=== PATIENT | female | born 1955 | race African-American/Black ===

== ENCOUNTER 2020-01-22 18:17 | Emergency (ER) | payer OTHER, MEDICAID ==
[~2020-01-22] VITALS: Ht 170.2 cm; Wt 68.0 kg
[~2020-01-22 18:17] MED LIST: CLON0.3T PO; CLOP75TA4 PO; HYDR100T26 PO; LISI40TA4 PO; METO-539 PO; PHEN50TA2 PO
[2020-01-22] MEDS ORDERED: SODIUM CHLORIDE 0.9% 500 ML IV ONE (18:45)
[2020-01-22 19:06] LABS: BASOPHILS % 1.4 % (0.0-2.0); EOSINOPHILS % 4.3 % (0.0-5.0); HEMATOCRIT. 34.2 % (36.0-48.0); HEMOGLOBIN. 11.6 g/dL (12.0-16.0); LYMPHOCYTES % 41.4 % (20.0-50.0); MEAN CORPUSCULAR HEMOGLOBIN 33.1 pg (28.0-32.0); MEAN CORPUSCULAR VOLUME 97.5 fL (81.0-99.0); MEAN PLATELET VOLUME 8.1 fl (7.4-10.4); NEUTROPHILS % 44.9 % (40.0-76.0); PLATELET 257 x1000/uL (130-400); RED BLOOD CELL COUNT 3.51 mill/uL (4.2-5.4); RED CELL DISTRIBUTION WIDTH 13.6 % (11.6-14.6)
[2020-01-22 19:12] LABS: CHLORIDE 116 mEq/L (98-107)
[2020-01-22] MEDS ORDERED: MORPHINE SULFATE 2 MG/ML CPJ (NOT FOR IM USE) IV ONE (19:15)
[2020-01-22] MEDS ORDERED: ONDANSETRON HCL 4MG/2ML INJ IV ONE (19:15)
[2020-01-22 19:17] LABS: PROTHROMBIN TIME 10.5 sec (9.6-11.0)
[2020-01-22] MEDS ORDERED: MAGNESIUM CITRATE 300ML SOLUTION PO ONE (23:15)
[2020-01-23 02:20] VITALS: BP 123/77
== END 2020-01-23 02:22 | disposition home or self-care (01) ==
LOC: ER 18:17
DX: K59.00 Constipation, unspecified (principal); R10.9 Unspecified abdominal pain; K62.5 Hemorrhage of anus and rectum; I10 Essential (primary) hypertension; R56.9 Unspecified convulsions; Z88.0 Allergy status to penicillin; Z93.3 Colostomy status
CPT/HCPCS: 36415; 74176; 80053; 83690; 84484; 85025; 85610; 93005; 96361; 96374; 96375; 99285; J2270; J2405; J7040

== ENCOUNTER 2020-05-28 04:03 | Inpatient (IN) | payer OTHER, MEDICAID ==
[~2020-05-28] VITALS: Ht 149.9 cm; Wt 73.9 kg
[2020-05-28] MEDS ORDERED: FAMOTIDINE 20MG/2ML VIAL IV STA (04:38)
[2020-05-28] MEDS ORDERED: MORPHINE SULFATE 4 MG/ML CPJ (NOT FOR IM USE) IV STA (04:38)
[2020-05-28] MEDS ORDERED: ONDANSETRON HCL 4MG/2ML INJ IV STA (04:38)
[2020-05-28] MEDS ORDERED: SODIUM CHLORIDE 0.9% 1,000 ML IV ONE (04:45)
[2020-05-28 05:44] LABS: EOSINOPHILS % 5.3 % (0.0-5.0); HEMATOCRIT. 34.5 % (36.0-48.0); HEMOGLOBIN. 11.5 g/dL (12.0-16.0); LYMPHOCYTES % 35.1 % (20.0-50.0); MEAN CORPUSCULAR HEMOGLOBIN 32.3 pg (28.0-32.0); MEAN CORPUSCULAR VOLUME 96.6 fL (81.0-99.0); MEAN PLATELET VOLUME 8.5 fl (7.4-10.4); MONOCYTES % 5.9 % (2.0-8.0); NEUTROPHILS % 52.7 % (40.0-76.0); PLATELET 348 x1000/uL (130-400); RED BLOOD CELL COUNT 3.57 mill/uL (4.2-5.4); RED CELL DISTRIBUTION WIDTH 14.5 % (11.6-14.6)
[2020-05-28 05:52] LABS: CHLORIDE 117 mEq/L (98-107)
[2020-05-28 05:54] LABS: PROTHROMBIN TIME 42.6 sec (9.6-11.0)
[2020-05-28] MEDS ORDERED: IOHEXOL-350 100 ML BOTTLE ONE (06:42)
[2020-05-28 07:48] LABS: INR 4.4
[2020-05-28] MEDS ORDERED: MORPHINE SULFATE 4 MG/ML CPJ (NOT FOR IM USE) IV ONE (08:15)
[2020-05-28] MEDS ORDERED: DOCUSATE SODIUM 100MG CAPSULE PO PRN (10:15)
[2020-05-28] MEDS ORDERED: GUAIFENESIN 200MG/10ML SUGAR FREE UDC PO PRN (10:15)
[2020-05-28] MEDS ORDERED: NITROGLYCERIN 0.4MG TABLET SL SL PRN (10:15)
[2020-05-28] MEDS ORDERED: IPRATROPIUM/ALBUTEROL 0.5-3(2.5)MG/3ML NEB NEB PRN (10:15)
[2020-05-28] MEDS ORDERED: ZOLPIDEM TARTRATE 5MG TABLET PO PRN (10:15)
[2020-05-28] MEDS ORDERED: ACETAMINOPHEN 325MG TABLET PO PRN (10:15)
[2020-05-28] MEDS ORDERED: MAGNESIUM/ALUMINUM HYDROXIDE/SIMETHICONE 30ML UDC PO PRN (10:15)
[2020-05-28] MEDS: CLONIDINE 0.1MG TABLET PO PRN ×2 (10:46→16:37)
[2020-05-28] MEDS: AMLODIPINE 10MG TABLET PO SCH (10:46)
[2020-05-28 12:00] VITALS: BP_SYST 199; BP_SYST 235; BP_DIAS 121; BP_DIAS 128
[2020-05-28] MEDS: MORPHINE SULFATE 2 MG/ML CPJ (NOT FOR IM USE) IV PRN ×3 (12:28→20:59)
[2020-05-28] MEDS ORDERED: LISINOPRIL 20MG TABLET PO SCH (13:00)
[2020-05-28] MEDS ORDERED: AMLODIPINE 10MG TABLET PO SCH (13:00)
[2020-05-28] MEDS: HYDRALAZINE HCL 50MG TABLET PO SCH ×2 (13:03→21:01)
[2020-05-28] MEDS: TRAMADOL 50MG TABLET PO PRN (14:14)
[2020-05-28] MEDS ORDERED: PROT20 PO (15:41)
[2020-05-28] MEDS ORDERED: CARV25TA47 MT (15:43)
[2020-05-28] MEDS ORDERED: WARF5TAB76 PO (15:43)
[2020-05-28] MEDS ORDERED: KEPP500 MT (15:43)
[2020-05-28 16:00] VITALS: BP 191/121
[2020-05-28] MEDS: ONDANSETRON HCL 4MG/2ML INJ IV PRN ×2 (18:43→22:44)
[2020-05-28 20:00] VITALS: BP 168/95
[2020-05-28] MEDS: PHENYTOIN SODIUM EXTENDED 100MG CAPSULE PO SCH (20:06)
[2020-05-28] MEDS: FAMOTIDINE 20MG TABLET PO SCH (21:00)
[2020-05-28] MEDS: ASCORBIC ACID 500 MG TABLET PO SCH (21:00)
[2020-05-28] MEDS: METOPROLOL TARTRATE 25MG TABLET PO SCH (21:01)
[2020-05-28] MEDS: LISINOPRIL 20MG TABLET PO SCH (21:01)
[2020-05-28 23:49] LABS: *AMPHETAMINES SCREEN URINE NEGATIVE (NEGATIVE); *BARBITURATES SCREEN URINE NEGATIVE (NEGATIVE); *BENZODIAZEPINES SCREEN URINE NEGATIVE (NEGATIVE); *COCAINE SCREEN URINE NEGATIVE (NEGATIVE); METHADONE URINE SCREEN NEGATIVE (NEGATIVE)
[2020-05-28 23:50] LABS: CANNABINOID URINE SCREEN NEGATIVE (NEGATIVE); OPIATES URINE SCREEN PRESUMTIVE POSITIVE (NEGATIVE); PHENCYCLIDINE URINE SCREEN NEGATIVE (NEGATIVE)
[2020-05-29] VITALS (11 sets, daily range): BP systolic 129–186; BP diastolic 66–138
[2020-05-29] MEDS: CLONIDINE 0.2MG TABLET PO PRN ×3 (00:04→18:55)
[2020-05-29] MEDS: ACETAMINOPHEN 325MG TABLET PO PRN ×2 (00:47→18:59)
[2020-05-29] MEDS: MORPHINE SULFATE 2 MG/ML CPJ (NOT FOR IM USE) IV PRN ×4 (01:08→20:04)
[2020-05-29 01:12] LABS: CREATINE KINASE 262 IU/L (26-192)
[2020-05-29] MEDS: HYDRALAZINE HCL 50MG TABLET PO SCH ×3 (05:03→21:09)
[2020-05-29] MEDS: PHENYTOIN SODIUM EXTENDED 100MG CAPSULE PO SCH ×2 (05:03→17:06)
[2020-05-29 06:35] LABS: INR 1.8; PROTHROMBIN TIME 18.8 sec (9.6-11.0)
[2020-05-29 06:39] LABS: BASOPHILS % 1.4 % (0.0-2.0); EOSINOPHILS % 2.7 % (0.0-5.0); HEMATOCRIT. 38.8 % (36.0-48.0); HEMOGLOBIN. 13.1 g/dL (12.0-16.0); LYMPHOCYTES % 23.6 % (20.0-50.0); MEAN CORPUSCULAR HEMOGLOBIN 32.7 pg (28.0-32.0); MEAN CORPUSCULAR VOLUME 96.5 fL (81.0-99.0); MEAN PLATELET VOLUME 8.2 fl (7.4-10.4); MONOCYTES % 7.1 % (2.0-8.0); NEUTROPHILS % 65.2 % (40.0-76.0); PLATELET 305 x1000/uL (130-400); RED BLOOD CELL COUNT 4.02 mill/uL (4.2-5.4); RED CELL DISTRIBUTION WIDTH 14.5 % (11.6-14.6)
[2020-05-29 06:40] LABS: CHLORIDE 112 mEq/L (98-107)
[2020-05-29 06:46] LABS: PHOSPHORUS 2.9 mg/dL (2.5-4.9)
[2020-05-29] MEDS ORDERED: ZINC SULFATE 220 MG ( 50 ) CAPSULE PO SCH (09:00)
[2020-05-29] MEDS: TRAMADOL 50MG TABLET PO PRN (10:13)
[2020-05-29] MEDS: FAMOTIDINE 20MG TABLET PO SCH (10:13)
[2020-05-29] MEDS: ASCORBIC ACID 500 MG TABLET PO SCH (10:14)
[2020-05-29] MEDS: METOPROLOL TARTRATE 25MG TABLET PO SCH ×2 (10:14→21:10)
[2020-05-29] MEDS: AMLODIPINE 10MG TABLET PO SCH (10:15)
[2020-05-29] MEDS: LISINOPRIL 20MG TABLET PO SCH (10:16)
[2020-05-29] MEDS: ONDANSETRON HCL 4MG/2ML INJ IV PRN ×2 (13:04→14:51)
[2020-05-29] MEDS ORDERED: WARFARIN SODIUM 5MG TABLET PO SCH (18:00)
== END 2020-05-29 21:25 | disposition short-term general hospital (02) | DRG 206 ==
LOC: ER 04:03 → 8WST 08:27 → ENRESERV 10:25
PROVIDERS: ADMIT Internal Medicine; ATTEND Internal Medicine
DX: M94.0 Chondrocostal junction syndrome [Tietze] (principal); I16.1 Hypertensive emergency; K29.70 Gastritis, unspecified, without bleeding; D63.8 Anemia in other chronic diseases classified elsewhere; E66.9 Obesity, unspecified; F17.200 Nicotine dependence, unspecified, uncomplicated; G40.909 Epilepsy, unspecified, not intractable, without status epilepticus; I10 Essential (primary) hypertension; T45.515A Adverse effect of anticoagulants, initial encounter; Y92.89 Other specified places as the place of occurrence of the external cause; Z86.718 Personal history of other venous thrombosis and embolism; Z93.3 Colostomy status; Z88.0 Allergy status to penicillin; Z79.899 Other long term (current) drug therapy; Z88.8 Allergy status to other drugs, medicaments and biological substances; Z68.32 Body mass index [BMI] 32.0-32.9, adult
CPT/HCPCS: 36415; 71045; 71275; 74176; 80053; 80185; 80305; 82550; 82553; 82962; 83605; 83735; 83880; 84100; 84484; 85025; 93005; 93306; 93970; 99285; J2270; J2405; J3490; J7030; Q9967

== ENCOUNTER 2021-05-11 19:28 | Inpatient (IN) | payer OTHER, MEDICAID ==
[~2021-05-11] VITALS: Ht 162.6 cm; Wt 76.7 kg
[~2021-05-11 19:28] MED LIST changes: +CARV25TA47 MT; +CLOP-31 PO; -CLOP75TA4 PO; +KEPP500 MT; +LISI40TA13 PO; -LISI40TA4 PO; +PROT20 PO; +WARF5TAB76 PO
[2021-05-11] MEDS ORDERED: SODIUM CHLORIDE 0.9% 1,000 ML IV ONE (19:45)
[2021-05-11 20:27] LABS: BASOPHILS % 0.1 % (0.0-2.0); HEMATOCRIT. 36.5 % (36.0-48.0); HEMOGLOBIN. 11.7 g/dL (12.0-16.0); LYMPHOCYTES % 33.3 % (20.0-50.0); MEAN CORPUSCULAR HEMOGLOBIN 31.8 pg (28.0-32.0); MEAN CORPUSCULAR VOLUME 98.9 fL (81.0-99.0); MEAN PLATELET VOLUME 7.9 fl (7.4-10.4); MONOCYTES % 5.8 % (2.0-8.0); NEUTROPHILS % 57.8 % (40.0-76.0); PLATELET 296 x1000/uL (130-400); RED BLOOD CELL COUNT 3.69 mill/uL (4.2-5.4); RED CELL DISTRIBUTION WIDTH 14.1 % (11.6-14.6)
[2021-05-11 20:34] LABS: CHLORIDE 114 mEq/L (98-107)
[2021-05-11 20:36] LABS: INR 1.1; PROTHROMBIN TIME 11.5 sec (9.6-11.0)
[2021-05-11 20:37] LABS: ETHANOL BLOOD < 10 mg/dL
[2021-05-11 20:40] LABS: LDL CHOLESTEROL 79 mg/dL (5-100)
[2021-05-11] MEDS ORDERED: PIPERACILLIN/TAZ 3.375G PREMIX 50 ML IV ONE (20:45)
[2021-05-11] MEDS ORDERED: SODIUM CHLORIDE 0.9% 1000ML BAG (SEPSIS BOLUS) IV ONE (20:45)
[2021-05-11] MEDS ORDERED: VANCOMYCIN 1 G PREMIX 200 ML IV ONE (20:45)
[2021-05-12] MEDS ORDERED: DOCUSATE SODIUM 100MG CAPSULE PO PRN (12:15)
[2021-05-12] MEDS ORDERED: IPRATROPIUM/ALBUTEROL 0.5-3(2.5)MG/3ML NEB HHN PRN (12:15)
[2021-05-12] MEDS ORDERED: ONDANSETRON HCL 4MG/2ML INJ IV PRN (12:15)
[2021-05-12] MEDS ORDERED: MAGNESIUM/ALUMINUM HYDROXIDE/SIMETHICONE 30ML UDC PO PRN (12:15)
[2021-05-12] MEDS ORDERED: ACETAMINOPHEN 325MG TABLET PO PRN (12:15)
[2021-05-12] MEDS ORDERED: CLONIDINE 0.1MG TABLET PO PRN (12:15)
[2021-05-12] MEDS ORDERED: HYDROCODONE/ACETAMINOPHEN 5/325MG TABLET PO PRN (12:15)
[2021-05-12] MEDS ORDERED: NALOXONE HCL 0.4MG/ML VIAL IV PRN (12:30)
[2021-05-12] MEDS ORDERED: CLONIDINE 0.3MG TABLET PO SCH (12:45)
[2021-05-12] MEDS ORDERED: LEVETIRACETAM 500MG TABLET PO SCH (12:45)
[2021-05-12] MEDS ORDERED: LISINOPRIL 40MG TABLET PO SCH (12:45)
[2021-05-12] MEDS ORDERED: ENOXAPARIN 40MG/0.4ML SYR SUBCUT SCH (13:00)
[2021-05-12 13:27] VITALS: BP 149/65
[2021-05-12] MEDS ORDERED: METOPROLOL TARTRATE 50MG TABLET PO SCH (17:00)
[2021-05-13] MEDS ORDERED: OMEPRAZOLE 20MG CAPSULE EXTENDED RELEASE PO SCH (07:30)
[2021-05-13] MEDS ORDERED: CLOPIDOGREL 75MG TABLET PO SCH (09:00)
[2021-05-13] MEDS ORDERED: WARFARIN SODIUM 5MG TABLET PO SCH (09:00)
== END 2021-05-12 17:57 | disposition left against medical advice (07) | DRG 101 ==
LOC: ER 19:28 → 5EST 21:04 → EDBEDREQTM 21:06 → EDBEDREQ 21:06 → ENRESERV 05-12 07:34
PROVIDERS: ADMIT Internal Medicine; ATTEND Internal Medicine
PROC: 05JY3ZZ Inspection of Upper Vein, Percutaneous Approach (ICD-10-PCS; principal; 2021-05-12)
PROC: 05JY3ZZ Inspection of Upper Vein, Percutaneous Approach (ICD-10-PCS; 2021-05-12)
DX: G40.909 Epilepsy, unspecified, not intractable, without status epilepticus (principal); E44.1 Mild protein-calorie malnutrition; N17.9 Acute kidney failure, unspecified; I69.351 Hemiplegia and hemiparesis following cerebral infarction affecting right dominant side; E87.8 Other disorders of electrolyte and fluid balance, not elsewhere classified; E87.6 Hypokalemia; I87.8 Other specified disorders of veins; Z53.29 Procedure and treatment not carried out because of patient's decision for other reasons; R29.810 Facial weakness; R53.1 Weakness; I50.9 Heart failure, unspecified; R06.02 Shortness of breath; I11.0 Hypertensive heart disease with heart failure; I25.2 Old myocardial infarction; Z88.0 Allergy status to penicillin; Z88.8 Allergy status to other drugs, medicaments and biological substances; Z68.29 Body mass index [BMI] 29.0-29.9, adult; Z79.899 Other long term (current) drug therapy; Z79.02 Long term (current) use of antithrombotics/antiplatelets
CPT/HCPCS: 36415; 70551; 71045; 76937; 80053; 80320; 83605; 83721; 83880; 84145; 84484; 85025; 92610; 93005; 93306; 93970; 99291; C1725; J7030; G0480